=== PATIENT | male | born 1970 | race Caucasian/White ===

== ENCOUNTER → 2016-10-29 | Outpatient (CLI) | payer BC ==
--- NOTE | ~2016-10-29 | ESTC ---
Cardiac Perfusion Imaging Demographics Patient Name SANDRA Hoover Gender Male Patient Number [id number] Race Visit Number [id number] Ethnicity [employer] ID Room Number Accession Number [id number] Height Date of 1970 Weight Age 46 year(s) BSA Referring Physician Lakia SALAZAR MD Interpreting Lakia Stokes Date of study 10/29/2016 Physician Supervising /GARDENIAP Lakia PADILLA Technologist Trang Marroquin MD Ordering Physician Lakia Stokes Stress Sandie Koch RVT, mobile service rv technician RDCS Stress ECG Reading Lakia Stokes Nurse Propbinu Rose RN Physician Procedure Procedure Type: Nuclear Stress Test:Cardiolite Stress Test Procedure Start time: 10/29/2016 08:30 Indications: Chest pain. Conclusions Summary No TID. Normal perfusion images. Normal EF and WM. Stress Protocols Resting ECG RSR. PVCs. Pre-stress physical exam: Un changed. Predicted HR: 174 bpm ECG Findings No ECG changes suggestive of ischemia. Arrhythmias No rhythm abnormality. Symptoms Fatigue. Stress Interpretation Duration:10.02 mins. METs:11.70. DP:28 K. Achieved:104% MPHR. No chest pain. Reason for termination:Fatigue and SOB. EKG:No ischemia. No arrythmias. DTS:10 (Low risk) Imaging Results High risk findings Summed scores - Summed stress score: 5 - Summed rest score: 15 - Summed difference score: -10 Stress ejection Ejection fraction:76 % EDV :71 ml ESV :17 ml Stroke volume :54 ml LV mass :110 gr LV size:Normal Normal LV function Imaging Protocols Rest Stress Isotope:Tc99m Sestamibi IV Isotope: Tc99m Sestamibi IV Isotope dose:13.8 mCi Isotope dose:41 mCi Date:10/29/2016 07:09 Date:10/29/2016 08:53 Technique: SPECT Technique: Gated Supine SPECT Supine Scan Time:45-60 minutes post Scan Time:45-60 minutes post injection injection Medical History Admission Data Admission date: 10/29/2016 Admission Time: 06:50 Hospital Status: Outpatient. Signatures dtt: Divya Dorman dtd: 10/29/16 0830 Physician Self Edit
== END | disposition disaster alternative care site (69) ==
LOC: GRAD 06:50
DX: R07.9 Chest pain, unspecified (principal)
CPT/HCPCS: A9500

== ENCOUNTER → 2016-11-05 | Outpatient (CLI) | payer BC | END | disposition disaster alternative care site (69) | LOC: GRAD 14:26 | DX: M54.5 Low back pain (principal); M79.89 Other specified soft tissue disorders; M47.816 Spondylosis without myelopathy or radiculopathy, lumbar region ==